=== PATIENT | female | born 1965 | race Caucasian/White ===

== ENCOUNTER 2019-05-08 17:33 | Emergency (ER) | payer OTHER ==
[2019-05-08 17:44] VITALS: BP 135/90; PULSE 89; TEMP 98.7; BMI 25.9
--- NOTE | 2019-05-08 18:06 | PDOC ---
Documentation entered by Latisha Sauceda SCRIBE, acting as scribe for Arash Stark MD. Arash Stark MD: This documentation has been prepared by the Sohail nelson Andrys, SCRIBE, under my direction and personally reviewed by me in its entirety. I confirm that the documentation accurately reflects all work, treatment, procedures, and medical decision making performed by me. History of Present Illness - General Chief Complaint: Injury Stated Complaint: LEFT ANKLE INJURY History Source: Patient Exam Limitations: No Limitations - History of Present Illness Initial Comments: 05/08/19 17:41 The patient is a 54 year old female with no significant past medical history who presents to the ED after twisting her left ankle earlier today. Patient [place] was on [place] when she twisted her left ankle and heard a popping noise. She reports pain to the outside of her left ankle that is worsened when walking. Patient also reports associated swelling to the left ankle. Using a brace with relief. She states she applied ice to the left ankle and took Advil with slight relief of pain. Denies falling. Denies any other symptoms. 05/08/19 18:03 Past History - Past Medical History Allergies/Adverse Reactions: Allergies Allergy/AdvReac Type Severity Reaction Status Date / Time No Known Allergies Allergy Verified 05/08/19 17:34 Home Medications: Ambulatory Orders NK [No Known Home Medication] 05/08/19 COPD: No Other medical history: pt denies Review of Systems - Review of Systems Able to Perform ROS?: Yes Comments:: 05/08/19 17:41 GENERAL/CONSTITUTIONAL: No fever or chills. No weakness. HEAD, EYES, EARS, NOSE AND THROAT: No change in vision. No ear pain or discharge. No sore throat. CARDIOVASCULAR: No chest pain or shortness of breath. RESPIRATORY: No cough, wheezing, or hemoptysis. GASTROINTESTINAL: No nausea, vomiting, diarrhea or constipation. GENITOURINARY: No dysuria, frequency, or change in urination. MUSCULOSKELETAL: + ankle pain and swelling. No neck or back pain. SKIN: No rash NEUROLOGIC: No headache, vertigo, loss of consciousness, or change in strength/ sensation. ENDOCRINE: No increased thirst. No abnormal weight change. HEMATOLOGIC/LYMPHATIC: No anemia, easy bleeding, or history of blood clots. ALLERGIC/IMMUNOLOGIC: No hives or skin allergy. *Physical Exam - Vital Signs Last Vital Signs Temp Pulse Resp BP Pulse Ox 98.7 F 89 18 135/90 100 05/08/19 17:33 05/08/19 17:33 05/08/19 17:33 05/08/19 17:33 05/08/19 17:33 - Physical Exam Comments: 05/08/19 17:41 GENERAL: Awake, alert, and fully oriented, in no acute distress HEAD: No signs of trauma EYES: PERRLA, EOMI, sclera anicteric, conjunctiva clear ENT: Auricles normal inspection, hearing grossly normal, nares patent, oropharynx clear without exudates. Moist mucosa NECK: Normal ROM, supple, no lymphadenopathy, JVD, or masses LUNGS: Breath sounds equal, clear to auscultation bilaterally. No wheezes, and no crackles HEART: Regular rate and rhythm, normal S1 and S2, no murmurs, rubs or gallops ABDOMEN: Soft, nontender, normoactive bowel sounds. No guarding, no rebound. No masses EXTREMITIES: + There is swelling to the left ankle and tenderness to the lateral malleolus. Achilles tendon is normal. No clubbing or cyanosis. No cords or erythema. NEUROLOGICAL: Cranial nerves II through XII grossly intact. Normal speech, normal gait SKIN: Warm, Dry, normal turgor, no rashes or lesions noted. ED Treatment Course - ADDITIONAL ORDERS Additional order review: 05/08/19 18:04 Left ankle sprain r/o fracture X-ray negative for fracture Continue ice, Motrin, elevate, rest If worsen return to ER Patient refused crutches, risks and benefits explained to pt - RADIOLOGY Radiology Studies Ordered: Category Date Time Status ANKLE-LEFT [RAD] Stat Radiology 05/08/19 17:36 Taken 05/08/19 18:05 X-ray left ankle: no fracture, STS, heel spur *DC/Admit/Observation/Transfer Diagnosis at time of Disposition: Ankle sprain Qualifiers: Encounter type: initial encounter Involved ligament of ankle: unspecified ligament Laterality: left Qualified Code(s): S93.402A - Sprain of unspecified ligament of left ankle, initial encounter - Discharge Dispostion Disposition: HOME Condition at time of disposition: Improved Decision to Admit order: No - Referrals - Patient Instructions Printed Discharge Instructions: DI for Ankle Sprain Additional Instructions: Ice, Motrin, rest, elevate Ankle brace If worsen return to ER - Post Discharge Activity
== END 2019-05-08 18:18 | disposition home or self-care (01) ==
LOC: FER 17:33
DX: S93.402A Sprain of unspecified ligament of left ankle, initial encounter (principal); X58.XXXA Exposure to other specified factors, initial encounter; Y93.89 Activity, other specified; Y92.89 Other specified places as the place of occurrence of the external cause
CPT/HCPCS: 73610-TC-LT-FY; 99281-25

== ENCOUNTER 2021-08-03 12:32 | Emergency (ER) | payer OTHER ==
[2021-08-03 12:50] VITALS: BP 113/72; PULSE 82; TEMP 97.8; BMI 27.3
== END 2021-08-03 13:27 | disposition home or self-care (01) ==
LOC: FER 12:32
DX: S63.632A Sprain of interphalangeal joint of right middle finger, initial encounter (principal); X50.0XXA Overexertion from strenuous movement or load, initial encounter
CPT/HCPCS: 36415; 73140-TC-RT-FY; 86618; 99284-25

== ENCOUNTER 2022-04-27 14:18 | Emergency (ER) | payer OTHER ==
[2022-04-27 14:42] VITALS: BP 121/86; PULSE 51; RESP 18; TEMP 98.3; BMI 29.0
== END 2022-04-27 15:52 | disposition home or self-care (01) ==
LOC: FER 14:18
DX: S69.91XA Unspecified injury of right wrist, hand and finger(s), initial encounter (principal); X50.0XXA Overexertion from strenuous movement or load, initial encounter
CPT/HCPCS: 73110-TC-RT-FY; 73130-TC-RT-FY; 99283-25

== ENCOUNTER 2022-05-06 10:24 | Emergency (ER) | payer OTHER ==
[2022-05-06 10:30] VITALS: BP 140/80; PULSE 88; RESP 16; TEMP 98.5; BMI 27.4
== END 2022-05-06 12:30 | disposition home or self-care (01) ==
LOC: FER 10:24
DX: S59.902A Unspecified injury of left elbow, initial encounter (principal)
CPT/HCPCS: 73070-TC-LT-FY; 93971; 99284-25